=== PATIENT | female | born 1950 | race Caucasian/White ===

== ENCOUNTER 2020-01-03 12:14 | Emergency (ER) | payer MEDICARE, SELFPAY ==
--- NOTE | 2020-01-03 12:49 | ED.BACK ---
HPI - Back Pain/Injury General Chief Complaint: Back Pain/Injury Stated Complaint: Sciatica pain Time Seen by Provider: 01/03/20 12:51 Source: patient and RN notes reviewed Mode of arrival: ambulatory Limitations: no limitations History of Present Illness HPI Narrative: This is a 69 years old female presented office for evaluations of sciatica flares of her right lower back. Onset about a week ago. Symptoms began shortly a long car ride. She is moving back to [place] from [place]. She has similar symptoms about a year ago when she came to visit. Her [place] doctor gave her toradol and prednisone taper which has helped alot. She has tried [place] and Robaxin with ibuprofen with no minimal relief. Denies trauma/injury/fall. Denies urinary/bowel incontinent. She is a retired nurse. She is moving back to [place] permanently, she had a schedule appointment to establish care with a primary care on Friday 01/05 per patient. Related Data Home Medications Medication Instructions Recorded Confirmed amlodipine [Norvasc] 10 mg PO DAILY 01/03/20 01/03/20 aspirin 162 mg DAILY 01/03/20 01/03/20 atorvastatin 80 mg PO HS 01/03/20 01/03/20 bupropion HCl 100 mg PO BID 01/03/20 01/03/20 cetirizine [Zyrtec] 10 mg DAILY 01/03/20 01/03/20 Allergies Allergy/AdvReac Type Severity Reaction Status Date / Time cephalexin Allergy Intermediate Other Verified 01/03/20 12:31 hydroxyzine Allergy Intermediate Other Verified 01/03/20 12:30 Review of Systems Review of Systems: Narrative: CONSTITUTIONAL: Denies fever CARDIOVASCULAR: Denies chest pain, palpitation RESPIRATORY: Denies dyspnea, wheezing, cough GASTROINTESTINAL: Denies abdominal pain, nausea, vomiting GENITOURINARY: Denies urinary symptoms SKIN: Denies rash MUSCULOSKELETAL: Reports chronic back with subacute lower back pain that radiate on right side leg and sometimes to her left thigh. NEUROLOGIC: Denies lightheaded/dizziness. All other systems reviewed are negative, except as documented in HPI. [facility] Past Medical History Medical History (Updated 01/03/20 @ 14:04 by ARABELLA Reyes) Arthritis HTN (hypertension) Surgical History Surgical History (Updated 01/03/20 @ 12:51 by ARABELLA Reyes) Hx of appendectomy Hx of cholecystectomy Family History Family History (Updated 01/14/14 @ 07:13 by DOCTOR UNKNOWN) Sibling Family history of arthritis Family history of malignant neoplasm Father Patient's father is Other Cerebrovascular accident Hypertension Social History Social History Second hand tobacco smoke exposure: No Smoking end date: 05/20/73 Alcohol intake: current Gender identity (if verbalized by the patient): Female Comments At time of signature, I agree with nursing past medical, surgical, social and family history. There is no relevant family history pertinent to the presenting complaint. Exam Narrative: Exam Narrative: GENERAL: This is a well-nourished, well-developed patient, in no apparent distress. Overweight CARDIOVASCULAR: Regular rate and rhythm without murmurs, gallops, or rubs. RESPIRATORY: Clear to auscultation. Breath sounds equal bilaterally. No wheezes, rales, or rhonchi. GASTROINTESTINAL: Abdomen soft, non-tender, nondistended. Bowel sounds are active. No guarding. SKIN: warm, intact with no suspicious lesions or rash, good texture and turgor. NEURO: awake, alert, and oriented to person, place and time. There were no obvious focal neurologic abnormalities. Steady gait with walker EXTREMITIES: Normal range of motion. No edema. No calf tenderness. BACK: BACK: Tenderness in the paraspinous muscles in the lumbar area. No tenderness over the spinous processes of the lumbar vertebrae. LEGS: Normal strength including dorsi-flexion and plantar flexion of the feet. Positive right straight leg raising. Pedal pulses intact. [place] Coma Scale Eye Opening: Spontaneous 4 [place] Coma Scale Motor: Obeys Commands 6 Gla
[2020-01-03 12:50] VITALS: BP 144/77; PULSE 85; RESP 16; TEMP 36.7; O2SAT 97
[2020-01-03] MEDS: KETOROLAC (*BKC) 60 MG/2 ML VIAL IM (13:15)
== END 2020-01-03 13:40 | disposition home or self-care (01) ==
PROVIDERS: Emergency Provider Nurse Practitioner
DX: M54.31 Sciatica, right side (principal); M19.90 Unspecified osteoarthritis, unspecified site; I10 Essential (primary) hypertension
CPT/HCPCS: 96372; 99213; G0463; J1885

== ENCOUNTER 2020-01-26 10:11 | Outpatient (CLI) | payer MEDICARE, SELFPAY ==
[2020-01-26 10:51] LABS: Basophils Percent Auto 0.7 % (0.2-1.2); Eosinophils Absolute Auto 0.3 K/mm3 (0-0.3); Eosinophils Percent Auto 4.1 % (0-4.4); Hematocrit 42.5 % (37.0-47.0); Hemoglobin 14.1 g/dL (12.0-15.0); Immature Granulocyte Absolute 0.03 K/mm3 (0.00-0.031); Immature Granulocyte Percent A 0.5 % (0-0.5); Lymphocytes Absolute Auto 1.45 K/mm3 (0.9-3.2); Lymphocytes Percent Auto 23.8 % (18.3-44.2); Mean Corpuscular HGB Conc 33.2 g/dl (32-36); Mean Corpuscular Hemoglobin 30.6 pg (26-34); Mean Corpuscular Volume 92.2 fl (80-100); Mean Platelet Volume 10.2 fl (7.4-10.4); Monocytes Absolute Auto 0.4 K/mm3 (0.1-0.6); Monocytes Percent Auto 7.1 % (2.6-8.5); Neutrophils Absolute Auto 3.9 K/mm3 (1.3-6.7); Neutrophils Percent Auto 63.8 % (45.5-73.1); Platelet Count Result 217 k/mm3 (150-375); Red Blood Count 4.61 M/mm3 (4.2-5.4); Red Cell Distribution Width 14.5 % (11.5-14.5); White Blood Count 6.1 K/mm3 (4.5-10.0)
[2020-01-26 11:00] LABS: Hemoglobin A1C 5.7 % (<5.7)
[2020-01-26 11:07] LABS: Alanine Aminotransferase 27 U/L (4-35); Albumin Level 3.8 g/dL (3.5-5.1); Alkaline Phosphatase 77 U/L (38-126); Anion Gap 6 mmol/L (8-16); Aspartate Amino Transferase 22 U/L (14-36); Blood Urea Nitrogen 21 mg/dL (7-17); Calcium 8.8 mg/dL (8.4-10.2); Carbon Dioxide 24 mmol/L (22-30); Chloride 110 mmol/L (98-107); Cholesterol 137 mg/dL (0-200); Estimated Glomerular Filt Rate > 60; Glucose 114 mg/dL (65-105); HDL Direct 47 mg/dL; Potassium 3.7 mmol/L (3.4-5.0); Sodium 140 mmol/L (137-145); Triglycerides 90 mg/dL (<150)
[2020-01-26 11:17] LABS: Add Urine Microscopic? YES; Appearance Urine Turbid (Clear); Bacteria Urine 2+ /hpf; Bilirubin Urine Negative (Negative); Blood Urine 2+ (Negative); Color Urine Yellow (Yellow); Glucose Urine UA Negative (Negative); Ketones Urine Negative (Negative); Leukocyte Esterase Ur 3+ LEU/UL (Negative); Mucus Urine Few /lpf; Nitrate Urine Negative (Negative); Protein Urine 2+ mg/dL (Negative); RBC Urine 51-75 /hpf (0-2); Specific Grav Ur 1.017 (1.001-1.035); Squamous Epithelial Cell Urine Few /hpf (Few); Transitional Epi Cells Urine Rare /hpf (None Seen); Urobilinogen Urine Negative mg/dL (<2.0); WBC Clumps Urine Present /HPF; WBC Urine >75 /hpf
[2020-01-26 11:18] LABS: LDL Cholesterol Direct 70 mg/dL
--- NOTE | 2020-01-26 11:18 | ECG_ITS ---
Measurements Intervals [place] Rate: 76 P: 38 MI: 181 QRS: -5 QRSD: 94 T: 58 QT: 370 QTc: 417 Interpretive Statements SINUS RHYTHM BORDERLINE ST ABNORMALITY- HIGH LATERAL LEADS BASELINE ARTIFACT- I, II, III, AVR, AVL,A VF BORDERLINE ECG Electronically Signed On 01-26-2020 11:39:43 CDT by Yosvany Temple D.O.
[2020-01-26 11:29] LABS: Vitamin D 25 Hydroxy 31.8 ng/mL
[2020-01-26 11:47] LABS: Creatinine Urine 172.7 mg/dL
[2020-01-26 11:52] LABS: MALB Creatinine Ratio 73.9 mg/g (0-30); Microalbumin Urine Random 127.6 mg/L (0-16.7)
== END 2020-01-26 10:12 | disposition home or self-care (01) ==
PROVIDERS: PCP Internal Medicine; Visit Provider Internal Medicine
DX: E78.5 Hyperlipidemia, unspecified (principal); I10 Essential (primary) hypertension; F33.8 Other recurrent depressive disorders; R73.01 Impaired fasting glucose; Z79.899 Other long term (current) drug therapy; R39.15 Urgency of urination
CPT/HCPCS: 36415; 80053; 80061; 81001; 82043; 82306; 83036; 84443; 85025; 87077; 87086; 87088; 93005

== ENCOUNTER 2020-01-28 08:21 | Outpatient (CLI) | payer MEDICARE, SELFPAY ==
--- NOTE | ~2020-01-28 | MM_ITS ---
EXAMINATION: MM screening april BI w kallie HISTORY: Screening TECHNIQUE: Craniocaudal and mediolateral oblique 3-D tomosynthesis images were obtained and synthetic 2-D images were generated. CAD analysis was submitted and interpreted. COMPARISON: Comparison to multiple prior studies sequentially, with oldest reviewed study dated 08/17. BREAST PARENCHYMAL COMPOSITION: There are scattered areas of fibroglandular density. FINDINGS: There is no evidence of suspicious mass, calcification, or architectural distortion to sugg est malignancy in either breast. There has been no suspicious interval change. IMPRESSION: 1. No mammographic evidence of malignancy. 2. Recommend routine screening mammography in one year. BI-RADS Category 1: Negative Reviewed, dictated and finalized at location A.
== END 2020-01-28 08:22 | disposition home or self-care (01) ==
LOC: ANHIMG 08:24
PROVIDERS: PCP Internal Medicine; Visit Provider Internal Medicine
DX: Z12.31 Encounter for screening mammogram for malignant neoplasm of breast (principal)
CPT/HCPCS: 77063; 77067

== ENCOUNTER 2020-07-21 10:32 | Outpatient (CLI) | payer MEDICARE, SELFPAY | END 2020-07-21 10:33 | disposition home or self-care (01) | LOC: ANHCOVIDVC 10:32 | PROVIDERS: PCP Internal Medicine | DX: Z23 Encounter for immunization (principal) | CPT/HCPCS: 0001A; 91300 ==

== ENCOUNTER 2020-08-11 10:29 | Outpatient (CLI) | payer MEDICARE, SELFPAY | END 2020-08-11 10:30 | disposition home or self-care (01) | LOC: ANHCOVIDVC 10:29 | PROVIDERS: PCP Internal Medicine | DX: Z23 Encounter for immunization (principal) | CPT/HCPCS: 0002A; 91300 ==

== ENCOUNTER → 2020-09-01 13:49 | Outpatient (REF) | payer MEDICARE, SELFPAY | LOC: ANHLAB 13:49 | PROVIDERS: PCP Internal Medicine; Visit Provider Nurse Practitioner | DX: D49.2 Neoplasm of unspecified behavior of bone, soft tissue, and skin (principal) | CPT/HCPCS: 88305 ==

== ENCOUNTER → 2021-01-24 09:29 | Outpatient (CLI) | payer MEDICARE, SELFPAY ==
[2021-01-24 19:52] LABS: SARS-CoV-2 RNA PCR Positive
== END ==
PROVIDERS: PCP Internal Medicine; Visit Provider Internal Medicine
DX: U07.1 COVID-19 (principal)
CPT/HCPCS: C9803; U0003; U0005

== ENCOUNTER 2021-01-30 11:43 | Outpatient (RCR) | payer MEDICARE, SELFPAY ==
[2021-01-30] MEDS: diphenhydrAMINE HCl CAP 25 MG CAPSULE PO (11:59)
[2021-01-30] MEDS: ACETAMINOPHEN 325 MG TABLET 650 MG PO (11:59)
[2021-01-30] MEDS: FAMOTIDINE 20 MG TABLET PO (12:00)
[2021-01-30 12:12] VITALS: BP 124/65; PULSE 71; RESP 18; TEMP 36.7; O2SAT 94
[2021-01-30 13:36] VITALS: BP 138/59
== END 2021-01-30 16:30 | disposition home or self-care (01) ==
LOC: AMCINF 11:43
PROVIDERS: PCP Internal Medicine; Visit Provider Internal Medicine Hematology & Oncology
DX: Z23 Encounter for immunization (principal); U07.1 COVID-19; I10 Essential (primary) hypertension
CPT/HCPCS: A9270; J7050; M0243

== ENCOUNTER 2021-04-20 09:21 | Outpatient (CLI) | payer MEDICARE, SELFPAY ==
[2021-04-20 11:04] LABS: Basophils Percent Auto 0.6 % (0.2-1.2); Eosinophils Absolute Auto 0.3 K/mm3 (0-0.3); Hematocrit 42.1 % (37.0-47.0); Hemoglobin 13.8 g/dL (12.0-15.0); Immature Granulocyte Absolute 0.03 K/mm3 (0.00-0.031); Immature Granulocyte Percent A 0.4 % (0-0.5); Lymphocytes Absolute Auto 2.03 K/mm3 (0.9-3.2); Mean Corpuscular HGB Conc 32.8 g/dl (32-36); Mean Corpuscular Hemoglobin 30.7 pg (26-34); Mean Corpuscular Volume 93.8 fl (80-100); Monocytes Absolute Auto 0.5 K/mm3 (0.1-0.6); Monocytes Percent Auto 6.5 % (2.6-8.5); Neutrophils Absolute Auto 4.4 K/mm3 (1.3-6.7); Neutrophils Percent Auto 60.5 % (45.5-73.1); Platelet Count Result 237 k/mm3 (150-375); Red Blood Count 4.49 M/mm3 (4.2-5.4); Red Cell Distribution Width 14.6 % (11.5-14.5); White Blood Count 7.2 K/mm3 (4.5-10.0)
[2021-04-20 11:10] LABS: Hemoglobin A1C 5.5 % (<5.7)
[2021-04-20 11:22] LABS: Alanine Aminotransferase 28 U/L (4-35); Albumin Level 4.2 g/dL (3.5-5.1); Alkaline Phosphatase 89 U/L (38-126); Anion Gap 8 mmol/L (8-16); Aspartate Amino Transferase 32 U/L (14-36); Bilirubin,Total 0.8 mg/dL (0.2-1.3); Blood Urea Nitrogen 17 mg/dL (7-17); Calcium 9.1 mg/dL (8.4-10.2); Carbon Dioxide 27 mmol/L (22-30); Chloride 103 mmol/L (98-107); Cholesterol 127 mg/dL (0-200); Estimated Glomerular Filt Rate > 60; Glucose 99 mg/dL (65-110); HDL Direct 44 mg/dL; Potassium 3.7 mmol/L (3.4-5.0); Sodium 138 mmol/L (137-145); Triglycerides 82 mg/dL (<150)
[2021-04-20 11:26] LABS: Creatinine Urine 123.2 mg/dL
[2021-04-20 11:33] LABS: LDL Cholesterol Direct 58 mg/dL
[2021-04-20 11:45] LABS: MALB Creatinine Ratio 181.6 mg/g (0-30); Microalbumin Urine Random 223.7 mg/L (0-16.7)
[2021-04-20 16:42] LABS: Vitamin D 25 Hydroxy 45.6 ng/mL
== END 2021-04-20 09:22 | disposition home or self-care (01) ==
PROVIDERS: PCP Internal Medicine; Visit Provider Internal Medicine
DX: R73.01 Impaired fasting glucose (principal); F33.8 Other recurrent depressive disorders; Z51.81 Encounter for therapeutic drug level monitoring; Z79.899 Other long term (current) drug therapy; E78.5 Hyperlipidemia, unspecified; E55.9 Vitamin D deficiency, unspecified; I10 Essential (primary) hypertension; E66.01 Morbid (severe) obesity due to excess calories
CPT/HCPCS: 36415; 80053; 80061; 82043; 82306; 83036; 84443; 85025

== ENCOUNTER 2022-04-07 09:09 | Emergency (ER) | payer MEDICARE, SELFPAY ==
[2022-04-07 09:40] VITALS: BP 145/75; PULSE 81; RESP 14; TEMP 36.1; O2SAT 100
--- NOTE | 2022-04-07 10:01 | ED.GENADULT ---
HPI - General Adult General Chief complaint: Upper Respiratory Infection Stated complaint: cough Time Seen by Provider: 04/07/22 10:01 Source: patient Mode of arrival: ambulatory Limitations: no limitations History of Present Illness HPI narrative: 72-year-old female patient presents to the [facility] with complaints of an ongoing chronic cough for the past 2 weeks. Patient states her symptoms started about 2 weeks ago with fevers, chills, body aches, cough and just overall not feeling well. Patient states she has been vaccinated for COVID but she has not gotten a flu shot this season. Patient states that she did try to get into her primary care doctor however her primary doctor has moved to floor and she was assigned to a new doctor which cannot get her in until April. Patient states that symptoms have mostly resolved except for a cough that is ongoing feels like she can not cough fully. Related Data Home Medications Medication Instructions Recorded Confirmed cetirizine 10 mg tablet (Zyrtec) 10 mg DAILY 01/03/20 04/07/22 aspirin 81 mg tablet,delayed 81 mg PO DAILY 07/20/20 04/07/22 release multivitamin 1 tablet PO DAILY 01/30/21 04/07/22 Allergies Allergy/AdvReac Type Severity Reaction Status Date / Time cephalexin Allergy Intermediate Other Verified 04/07/22 09:37 hydroxyzine Allergy Intermediate Other Verified 04/07/22 09:37 Review of Systems Review of Systems: CONSTITUTIONAL: Positive fever, chills that has since resolved, denies sweats. EYES: Denies visual changes, redness, or discharge. ENT: Denies rhinorrhea, congestion, sore throat, or otalgia. Positive loss of voice CARDIOVASCULAR: Denies chest pain, palpitations, or edema. RESPIRATORY: Positive cough, denies dyspnea. GASTROINTESTINAL: Denies abdominal pain, nausea, vomiting, or diarrhea. GENITOURINARY: Denies dysuria or hematuria. SKIN: Denies rash or itching. MUSCULOSKELETAL: Denies back pain, joint pain, positive myalgia. NEUROLOGIC: Positive headache, denies numbness, or weakness. PSYCHIATRIC: Denies anxiety or depression. [facility] Past Medical History Medical History Arthritis HTN (hypertension) Surgical History Surgical History History of tonsillectomy Hx of appendectomy Hx of cholecystectomy Family History Family History Sibling Family history of arthritis Family history of malignant neoplasm Father Patient's father is Other Cerebrovascular accident Hypertension Social History Social History Smoking packs per day: 2 Smoking cigarettes per day: 40.0 Years smoked: 5 Smoking pack-years: 10.00 Smoking status: Former smoker Second hand tobacco smoke exposure: No Smoking end date: 05/20/81 Alcohol intake: current Gender identity (if verbalized by the patient): Female Comments At the time of my signature I agree with nursing past medical history, surgical, social, and family history. There is no relevant family history pertinent to the presenting complaint. Exam Narrative: GENERAL: ill-appearing, well-nourished, and in no acute distress. HEAD: Normocephalic, atraumatic. EYES: PERRLA and EOMI. ENT: Nares with erythema and edema noted bilaterally, no rhinorrhea or epistaxis. Mucous membranes moist. Posterior pharynx with no erythema, tonsillar edema, exudates or lesions present. NECK: Supple. No lymphadenopathy CHEST: Patient's right lower lobe does have some wheezing present along with tightness to bilateral lower lobes. Bilateral upper lobes are clear. No respiratory distress. Patient able to talk in clear complete sentences HEART: Regular rate and rhythm. No murmur heard. Normal peripheral pulses. ABDOMEN: Soft, nontender, nondistended, normal active bowel sounds. EXTRE
[2022-04-07] MEDS: ALBUTEROL SULFATE NEB 2.5 MG/3 ML INH INHALATION (10:33)
[2022-04-07] MEDS: IPRATROPIUM BR 0.02% INH SOLN 0.5 MG/2.5 ML VIAL INHALATION (10:33)
== END 2022-04-07 11:25 | disposition home or self-care (01) ==
PROVIDERS: Emergency Provider Nurse Practitioner Family; PCP Internal Medicine
DX: J20.8 Acute bronchitis due to other specified organisms (principal); Z87.891 Personal history of nicotine dependence; I10 Essential (primary) hypertension; M19.90 Unspecified osteoarthritis, unspecified site; Z79.82 Long term (current) use of aspirin
CPT/HCPCS: 94640; 99213; G0463

== ENCOUNTER 2022-05-09 10:47 | Outpatient (CLI) | payer MEDICARE, SELFPAY ==
[2022-05-09 11:53] LABS: Alanine Aminotransferase 30 U/L (6-35); Albumin Level 4.4 g/dL (3.5-5.1); Alkaline Phosphatase 81 U/L (38-126); Anion Gap 9 mmol/L (8-16); Aspartate Amino Transferase 29 U/L (14-36); Bilirubin,Total 0.9 mg/dL (0.2-1.3); Blood Urea Nitrogen 26 mg/dL (7-17); Calcium 9.2 mg/dL (8.4-10.2); Carbon Dioxide 28 mmol/L (22-30); Chloride 105 mmol/L (98-107); Cholesterol 143 mg/dL (0-200); Estimated Glomerular Filt Rate > 60; Glucose 94 mg/dL (65-110); HDL Direct 58 mg/dL; Sodium 142 mmol/L (137-145); Triglycerides 78 mg/dL (<150)
[2022-05-09 12:05] LABS: LDL Cholesterol Direct 56 mg/dL
[2022-05-09 12:12] LABS: Vitamin D 25 Hydroxy 43.9 ng/mL
== END 2022-05-09 10:48 | disposition home or self-care (01) ==
PROVIDERS: PCP Internal Medicine; Visit Provider Internal Medicine
DX: Z51.81 Encounter for therapeutic drug level monitoring (principal); Z79.899 Other long term (current) drug therapy; R73.01 Impaired fasting glucose; I10 Essential (primary) hypertension; E78.5 Hyperlipidemia, unspecified; E55.9 Vitamin D deficiency, unspecified
CPT/HCPCS: 36415; 80053; 80061; 82306; 83036

== ENCOUNTER 2022-11-17 10:31 | Outpatient (CLI) | payer MEDICARE, SELFPAY ==
[2022-11-17 12:42] LABS: Alanine Aminotransferase 29 U/L (6-35); Albumin Level 4.3 g/dL (3.5-5.1); Alkaline Phosphatase 66 U/L (38-126); Anion Gap 7 mmol/L (8-16); Aspartate Amino Transferase 29 U/L (14-36); Bilirubin,Total 0.8 mg/dL (0.2-1.3); Blood Urea Nitrogen 24 mg/dL (7-17); Calcium 9.3 mg/dL (8.4-10.2); Carbon Dioxide 28 mmol/L (22-30); Chloride 107 mmol/L (98-107); Cholesterol 124 mg/dL (0-200); Estimated Glomerular Filt Rate > 60; Glucose 92 mg/dL (65-110); HDL Direct 45 mg/dL; Potassium 3.9 mmol/L (3.4-5.0); Sodium 142 mmol/L (137-145); Triglycerides 71 mg/dL (<150)
[2022-11-17 12:56] LABS: LDL Cholesterol Direct 57 mg/dL
[2022-11-17 13:01] LABS: Vitamin D 25 Hydroxy 47.4 ng/mL
[2022-11-17 13:21] LABS: Hemoglobin A1C 5.7 % (<5.7)
== END 2022-11-17 10:32 | disposition home or self-care (01) ==
LOC: ANHLAB 10:34
PROVIDERS: PCP Family Medicine; Visit Provider Family Medicine
DX: I10 Essential (primary) hypertension (principal); Z79.899 Other long term (current) drug therapy; E55.9 Vitamin D deficiency, unspecified; R73.02 Impaired glucose tolerance (oral); E78.5 Hyperlipidemia, unspecified
CPT/HCPCS: 36415; 80053; 80061; 82306; 83036

== ENCOUNTER 2023-01-02 12:45 | Outpatient (CLI) | payer MEDICARE, SELFPAY ==
--- NOTE | ~2023-01-02 | DEXA_ITS ---
Bone Density Report Name: ODETTE REYNOLDS Age: 72 Sex: Female Ethnicity: White Date of : 1950 Indication: postmenopausal; screening for osteoporosis; height loss; Referring Provider: LESIA LANGE Study: Bone densitometry was performed. Exam Date: January 02, 2023 Accession number: [id number] Bone Density: Region BMD T-score Z-score Classification AP Spine(L1-L4) 1.218 1.6 3.9 Normal Femoral Neck (Left) 1.024 1.6 3.6 Normal Total Hip (Left) 1.152 1.7 3.5 Normal Femoral Neck (Right) 0.738 -1.0 1.1 Normal Total Hip (Right) 1.116 1.4 3.2 Normal Total Hip Mean 1.134 1.6 3.4 Normal World Health Organization criteria for BMD impression classify patients as: Normal (T-score at or above -1.0), Osteopenia (T-score between -1.0 and -2.5), or Osteoporosis (T-score at or below -2.5). 10-year Fracture Risk: FRAX not reported because: All T-scores for Spine Total, Hip Total, Femoral Neck at or above -1.0 Clinical Information Provided by Patient: Has used the following medications: Vitamin D Patient maximum height was 67 Menopause Age: 46 Drinks caffeinated beverages Onset of menses at age 12 Number of children 3 Impression: The patient has normal bone mass. Discussion: BONE DENSITY IS ABOVE THE MINIMUM DESIRABLE LEVEL AT ALL SKELETAL SITES TESTED. This patient?s bone mineral density is above the minimum desirable level (T-score -1.0 or better) at all sites measured. The patient should follow a healthful lifestyle (good nutrition with adequate calcium and vitamin D, and appropriate weight-bearing exercise). Follow-Up: Consider repeating this study in 5 years or sooner if there is some new clinical indication. Reported by: JAKY on 01/02/2023 1:19:00 PM. Reviewed, dictated and finalized at location A. [facility]
== END 2023-01-02 12:46 | disposition home or self-care (01) ==
LOC: ANHIMG 12:47
PROVIDERS: PCP Family Medicine; Visit Provider Family Medicine
DX: Z78.0 Asymptomatic menopausal state (principal)
CPT/HCPCS: 77080

== ENCOUNTER 2023-02-23 11:01 | Outpatient (CLI) | payer MEDICARE, SELFPAY ==
[2023-02-23 11:27] LABS: Basophils Absolute Auto 0.1 K/mm3 (0.0-0.1); Basophils Percent Auto 0.7 % (0.2-1.2); Eosinophils Absolute Auto 0.2 K/mm3 (0-0.3); Hematocrit 42.7 % (37.0-47.0); Hemoglobin 14.2 g/dL (12.0-15.0); Immature Granulocyte Absolute 0.05 K/mm3 (0.00-0.031); Immature Granulocyte Percent A 0.7 % (0-0.5); Lymphocytes Absolute Auto 2.13 K/mm3 (0.9-3.2); Lymphocytes Percent Auto 30.6 % (18.3-44.2); Mean Corpuscular HGB Conc 33.3 g/dl (32-36); Mean Corpuscular Hemoglobin 31.4 pg (26-34); Mean Corpuscular Volume 94.5 fl (80-100); Mean Platelet Volume 9.8 fl (7.4-10.4); Monocytes Absolute Auto 0.5 K/mm3 (0.1-0.6); Monocytes Percent Auto 6.6 % (2.6-8.5); Neutrophils Absolute Auto 4.1 K/mm3 (1.3-6.7); Neutrophils Percent Auto 58.4 % (45.5-73.1); Platelet Count Result 252 k/mm3 (150-375); Red Blood Count 4.52 M/mm3 (4.2-5.4); Red Cell Distribution Width 13.8 % (11.5-14.5)
[2023-02-23 11:38] LABS: Alanine Aminotransferase 28 U/L (6-35); Albumin Level 4.3 g/dL (3.5-5.1); Alkaline Phosphatase 68 U/L (38-126); Anion Gap 7 mmol/L (8-16); Aspartate Amino Transferase 28 U/L (14-36); Bilirubin,Total 0.8 mg/dL (0.2-1.3); Blood Urea Nitrogen 22 mg/dL (7-17); Calcium 9.4 mg/dL (8.4-10.2); Carbon Dioxide 28 mmol/L (22-30); Chloride 105 mmol/L (98-107); Cholesterol 125 mg/dL (0-200); Estimated Glomerular Filt Rate > 60; Glucose 103 mg/dL (65-110); HDL Direct 49 mg/dL; Potassium 4.2 mmol/L (3.4-5.0); Sodium 140 mmol/L (137-145); Triglycerides 62 mg/dL (<150)
[2023-02-23 11:49] LABS: LDL Cholesterol Direct 61 mg/dL
[2023-02-23 12:15] LABS: Vitamin D 25 Hydroxy 63.6 ng/mL
[2023-02-23 12:20] LABS: Hemoglobin A1C 5.6 % (<5.7)
== END 2023-02-23 11:02 | disposition home or self-care (01) ==
PROVIDERS: PCP Family Medicine; Visit Provider Family Medicine
DX: R73.02 Impaired glucose tolerance (oral) (principal); R73.01 Impaired fasting glucose; F32.A Depression, unspecified; E66.01 Morbid (severe) obesity due to excess calories; E55.9 Vitamin D deficiency, unspecified; I10 Essential (primary) hypertension
CPT/HCPCS: 36415; 80053; 80061; 82306; 83036; 85025

== ENCOUNTER 2023-09-26 07:50 | Outpatient (CLI) | payer MEDICARE, SELFPAY ==
[2023-09-26 08:33] LABS: Hematocrit 44.1 % (37.0-47.0); Hemoglobin 14.1 g/dL (12.0-15.0); Mean Corpuscular Hemoglobin 30.5 pg (26-34); Mean Corpuscular Volume 95.2 fl (80-100); Platelet Count Result 228 k/mm3 (150-375); Red Blood Count 4.63 M/mm3 (4.2-5.4); Red Cell Distribution Width 14.5 % (11.5-14.5); White Blood Count 6.1 K/mm3 (4.5-10.0)
[2023-09-26 08:42] LABS: Alanine Aminotransferase 23 U/L (6-35); Albumin Level 4.5 g/dL (3.5-5.1); Alkaline Phosphatase 77 U/L (38-126); Anion Gap 6 mmol/L (4-12); Aspartate Amino Transferase 25 U/L (14-36); Bilirubin,Total 0.8 mg/dL (0.2-1.3); Blood Urea Nitrogen 30 mg/dL (7-17); Calcium 10.3 mg/dL (8.4-10.2); Carbon Dioxide 29 mmol/L (22-30); Chloride 106 mmol/L (98-107); Estimated Glomerular Filt Rate > 60; Glucose 104 mg/dL (65-110); Sodium 141 mmol/L (137-145)
[2023-09-26 09:45] LABS: Hemoglobin A1C 5.8 % (<5.7)
== END 2023-09-26 07:51 | disposition home or self-care (01) ==
PROVIDERS: PCP Family Medicine; Visit Provider Family Medicine
DX: E55.9 Vitamin D deficiency, unspecified (principal); E66.01 Morbid (severe) obesity due to excess calories; E66.9 Obesity, unspecified; F32.A Depression, unspecified; I10 Essential (primary) hypertension; Z79.899 Other long term (current) drug therapy
CPT/HCPCS: 36415; 80053; 83036; 85027

== ENCOUNTER 2023-09-28 14:16 | Emergency (ER) | payer MEDICARE, SELFPAY ==
--- NOTE | 2023-09-28 14:20 | ED.FEMALEGU ---
HPI - Female Genitourinary General Chief complaint: Urogenital-Female Stated complaint: urinary issue Time Seen by Provider: 09/28/23 14:20 Source: patient Mode of arrival: ambulatory Limitations: no limitations History of Present Illness HPI Narrative: Patient is a 73-year-old female that presents with 1 day of frequency and urgency. Wears pads daily. Denies any low pelvic pain, back pain, fever, nausea, vomiting, diarrhea. Has taken Tylenol and D-mannose. MD elicited complaint: dysuria Related Data Home Medications Medication Instructions Recorded Confirmed aspirin 81 mg tablet,delayed 81 mg PO DAILY 07/20/20 09/28/23 release multivitamin 1 tablet PO DAILY 01/30/21 09/28/23 cetirizine 10 mg tablet (Zyrtec) 10 mg PO DAILY 11/15/22 09/28/23 cholecalciferol (vitamin D3) 50 50 mcg PO DAILY 11/15/22 09/28/23 mcg (2,000 unit) capsule nystatin-triamcinolone 100,000 1 applic topical BID 11/15/22 09/28/23 unit/g-0.1 % topical cream Allergies Allergy/AdvReac Type Severity Reaction Status Date / Time cephalexin Allergy Intermediate Other Verified 09/28/23 14:36 hydroxyzine Allergy Intermediate Other Verified 09/28/23 14:36 Review of Systems Review of Systems: All systems reviewed & are unremarkable except as noted in HPI and below Constitutional: Constitutional: Denies chills, Denies fever(s), Denies headache(s), Denies malaise and Denies weakness Eyes: Eyes: Denies change in vision, Denies eye discharge and Denies irritation ENT: Denies otalgia, Denies headache(s), Denies nasal congestion, Denies nasal discharge, Denies sinus pain and Denies sore throat Cardiovascular: Cardiovascular: Denies chest pain, Denies edema, Denies palpitations and Denies dyspnea Respiratory: Respiratory: Denies cough and Denies dyspnea Gastrointestinal: Gastrointestinal: Denies abdominal pain, Denies diarrhea, Denies nausea and Denies vomiting Genitourinary: Genitourinary: Denies hematuria, Reports nocturia, Reports dysuria, Denies flank pain and Reports urinary urgency Musculoskeletal: Musculoskeletal: Denies back pain and Denies numbness Integumentary/Breasts: Skin/Breast: Denies pruritus and Denies rash Neurologic: Denies headache(s), Denies numbness and Denies weakness Psychiatric: Psychiatric: Reports no additional psychiatric complaints Endocrine: Endocrine: Denies palpitations PMFSH Past Medical History Medical History Arthritis HTN (hypertension) Surgical History Surgical History History of tonsillectomy Hx of appendectomy Hx of cholecystectomy Family History Family History Sibling Family history of arthritis Family history of malignant neoplasm Father Patient's father is Other Cerebrovascular accident Hypertension Social History Social History Smoking packs per day: 2 Smoking cigarettes per day: 40.0 Years smoked: 5 Smoking pack-years: 10.00 Smoking status: Former smoker Second hand tobacco smoke exposure: No Smoking end date: 05/20/81 Alcohol intake: current Alcohol use details: rarely Substance use: never Substance use type: does not use Lack of Transportation: No Lack of Food: Never True Current Housing: I Have Housing Concerned About Future Housing: No Difficulty Paying Gas/Electric Bills: No Difficulty Paying for Meds: No Currently Unemployed: No Education: Associate Degree Difficulty w/ Childcare or Family Care: No Gender identity (if verbalized by the patient): Female Comments At time of signature, agree with nursing past medical, surgical, social and family history. There is no relevant family history pertinent to the presenting complaint. Exam Const: General: cooperative, healthy appearing, comfor
[2023-09-28 14:33] VITALS: BP 153/75; PULSE 80; RESP 20; TEMP 37.5; O2SAT 97
== END 2023-09-28 15:05 | disposition home or self-care (01) ==
PROVIDERS: Emergency Provider Nurse Practitioner Family; PCP Family Medicine
DX: N30.01 Acute cystitis with hematuria (principal); I10 Essential (primary) hypertension; Z87.891 Personal history of nicotine dependence
CPT/HCPCS: 81003; 87077; 87086; 87088; 87186; 99213; G0463

== ENCOUNTER 2023-10-08 12:13 | Outpatient (CLI) | payer MEDICARE, SELFPAY ==
[2023-10-08 13:22] LABS: Appearance Urine Turbid (Clear); Bacteria Urine 2+ /hpf; Bilirubin Urine Negative (Negative); Blood Urine 2+ (Negative); Color Urine Yellow (Yellow); Glucose Urine UA Negative (Negative); Ketones Urine Negative (Negative); Leukocyte Esterase Ur 3+ LEU/UL (Negative); Nitrate Urine Negative (Negative); Non Pathogenic Casts 0-2; Protein Urine 1+ mg/dL (Negative); Squamous Epithelial Cell Urine None Seen /hpf (Few); Urobilinogen Urine 0.2 mg/dL (<2.0); WBC Urine >100 /hpf (0-3); pH Urine 6.5 (5.0-9.0)
[2023-10-08 13:38] LABS: Add Urine Microscopic? YES
== END 2023-10-08 12:14 | disposition home or self-care (01) ==
PROVIDERS: PCP Family Medicine; Visit Provider Family Medicine
DX: N30.90 Cystitis, unspecified without hematuria (principal); Z79.899 Other long term (current) drug therapy
CPT/HCPCS: 81001; 87077; 87086; 87088; 87186

== ENCOUNTER 2024-03-30 08:22 | Outpatient (CLI) | payer MEDICARE, SELFPAY ==
[2024-03-30 08:57] LABS: Hematocrit 42.7 % (37.0-47.0); Mean Corpuscular HGB Conc 32.8 g/dl (32-36); Mean Corpuscular Volume 94.7 fl (80-100); Mean Platelet Volume 9.8 fl (7.4-10.4); Platelet Count Result 234 k/mm3 (150-375); Red Blood Count 4.51 M/mm3 (4.2-5.4); Red Cell Distribution Width 14.6 % (11.5-14.5); White Blood Count 7.3 K/mm3 (4.5-10.0)
[2024-03-30 09:16] LABS: Alanine Aminotransferase 20 U/L (6-35); Albumin Level 4.2 g/dL (3.5-5.1); Alkaline Phosphatase 78 U/L (38-126); Anion Gap 9 mmol/L (4-12); Aspartate Amino Transferase 24 U/L (14-36); Bilirubin,Total 0.6 mg/dL (0.2-1.3); Blood Urea Nitrogen 34 mg/dL (7-17); Calcium 9.9 mg/dL (8.4-10.2); Carbon Dioxide 29 mmol/L (22-30); Chloride 103 mmol/L (98-107); Cholesterol 117 mg/dL (0-200); Estimated Glomerular Filt Rate > 60; Glucose 88 mg/dL (65-110); HDL Direct 53 mg/dL; Potassium 4.4 mmol/L (3.4-5.0); Sodium 141 mmol/L (137-145); Triglycerides 49 mg/dL (<150)
[2024-03-30 09:27] LABS: LDL Cholesterol Direct 47 mg/dL
[2024-03-30 10:03] LABS: Hemoglobin A1C 5.9 % (<5.7)
[2024-03-30 13:50] LABS: Vitamin D 25 Hydroxy 55.2 ng/mL
== END 2024-03-30 08:23 | disposition home or self-care (01) ==
PROVIDERS: PCP Family Medicine; Visit Provider Family Medicine
DX: E55.9 Vitamin D deficiency, unspecified (principal); E66.01 Morbid (severe) obesity due to excess calories; F32.A Depression, unspecified; I10 Essential (primary) hypertension; R73.01 Impaired fasting glucose; Z00.00 Encounter for general adult medical examination without abnormal findings; Z79.899 Other long term (current) drug therapy
CPT/HCPCS: 36415; 80053; 80061; 82306; 82607; 83036; 85027

== ENCOUNTER 2024-10-28 09:11 | Outpatient (CLI) | payer MEDICARE, SELFPAY ==
[2024-10-28 09:30] LABS: Hematocrit 45.2 % (37.0-47.0); Hemoglobin 14.7 g/dL (12.0-15.0); Mean Corpuscular HGB Conc 32.5 g/dl (32-36); Mean Corpuscular Hemoglobin 30.2 pg (26-34); Mean Corpuscular Volume 92.8 fl (80-100); Platelet Count Result 216 k/mm3 (150-375); Red Blood Count 4.87 M/mm3 (4.2-5.4); Red Cell Distribution Width 14.6 % (11.5-14.5); White Blood Count 7.4 K/mm3 (4.5-10.0)
[2024-10-28 09:44] LABS: Alanine Aminotransferase 27 U/L (6-35); Albumin Level 4.2 g/dL (3.5-5.1); Alkaline Phosphatase 68 U/L (38-126); Anion Gap 8 mmol/L (4-12); Aspartate Amino Transferase 27 U/L (14-36); Bilirubin,Total 0.6 mg/dL (0.2-1.3); Blood Urea Nitrogen 32 mg/dL (7-17); Calcium 9.8 mg/dL (8.4-10.2); Carbon Dioxide 25 mmol/L (22-30); Chloride 108 mmol/L (98-107); Estimated Glomerular Filt Rate > 60; Glucose 109 mg/dL (65-110); Potassium 4.3 mmol/L (3.4-5.0); Sodium 141 mmol/L (137-145); Total Protein 7.6 g/dL (6.3-8.2)
--- OUTSIDE RECORDS SUMMARY | 2024-10-28 09:52 | XMS_ITS | Clinical Summary ---
Author Organization [facility] [employer] Address [address] [place] [address] Care Team Providers Care Trust Evaluation Supervisor Name Role Phone Zeke Mckeon MD Primary Care Provider [phone] Source Comments [facility],non-owned Affiliates and Associated Physician Practices is amultiple site organization consisting of ambulatory clinics and hospital sitesin [place], [place], [place] and [place]. This disclosure is being madepursuant to the Care Everywhere program and may not contain all information available regarding this patient. Last updated 18.[facility] [employer] Allergies Active Allergy Reactions Criticality Noted Date Comments Cephalexin Nausea and/or Vomiting Low 11/01/2015 Hydroxyzine Pamoate Other 11/19/2017 hallucinations Medications * Be aware that medications may not be up to date on this document. Alwaysverify current medications with the patient. aspirin (ASPIRIN) 81 MG tablet Take 81 mg by mouth once daily Active atorvastatin (LIPITOR) 80 MG tablet Take 1 tablet by mouth once daily 12/17/2016 Active cetirizine (ZYRTEC) 10 MG tablet Take 10 mg by mouth once daily as needed Active ibuprofen (MOTRIN) 200 MG tablet Take 200 mg by mouth as needed Active multivitamins (ONE A DAY) capsule Take 1 capsule by mouth once daily Active buPROPion SR 12hr (WELLBUTRIN SR) 200 MG tablet Take 200 mg by mouth 2 times daily Active Social History Tobacco Use Types Packs/Day Years Used Date Smoking Tobacco: Former Cigarettes 1 4 0 05/20/1971 - 05/20/1975 Smokeless Tobacco: Never Comments Unknown Sex and Gender Information Value Date Recorded Sex Assigned at Not on file 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 Gender Identity Not on file Sexual Orientation Not on file Last Filed Vital Signs Vital Sign Reading Time Taken Comments Blood Pressure - - Pulse 69 11/01/2015 10:20 AM CDT Temperature 36.6 C (97.8 F) 11/01/2015 10:20 AM CDT Respiratory Rate 14 11/01/2015 10:20 AM CDT Oxygen Saturation - - Inhaled Oxygen Concentration - - Weight 129.3 kg (285 lb) 11/19/2017 10:17 AM CDT reported Height 168.9 cm (5' 6.5) 11/19/2017 10:17 AM CD T reported Body Mass Index 45.31 11/19/2017 10:17 AM CDT Plan of Treatment Health Maintenance Due Date Last Done Comments BONE DENSITY TESTING 1950 HEPATITIS C SCREENING 03/07/1966 DTAP/TDAP/TD VACCINES (1 - Tdap) 1967 PNEUMOCOCCAL VACCINE 50+ (1 of 1 - PCV) 1998 ZOSTER VACCINE (1 of 2) 1998 SCREENING FOR DIABETES 11/19/2017 Respiratory Syncytial Virus (RSV) Vaccine Pt: or over 60 yrs (1 - 1-dose 75+ series) 2023 COVID-19 VACCINE ( - 2023-2 5 season) 2024 DEPRESSION SCREENING 05/20/2024 INFLUENZA VACCINE (Season Ended) 2025 HEPATITIS B VACCINE Aged Out No longe r eligible based on patient's age to complete this topic HIB VACCINE Aged Out No longer eligi ble based on patient's age to complete this topic HPV VACCINE Aged Out No longer eligi ble based on patient's age to complete this topic MENINGOCOCCAL (Group B) VACC INE SHARED DECISION-MAKING Aged Out No longer eligibl e based on patient's age to complete this topic MENINGOCOCCAL GROUPS A/C/Y/W VACCINE Aged Out No longer eligible b ased on patient's age to complete this topic Insurance MEDICARE [facility] [address] Care Teams Trust Evaluation Supervisor Relationship Specialty Start Date End Date Zeke Mckeon MD [address] [place] [address] PCP - General 01/27/20
--- OUTSIDE RECORDS SUMMARY | 2024-10-28 09:52 | XMS_ITS | Continuity of Care Document ---
Author Organization [facility] Address [address] [place] [address] Phone Care Team Providers Care Bottle Filler Name Role Phone Chavira OD, Bere[place] Unavailable Unavailable Procedures Procedure Date Office/outpatient Visit, Est Office/outpatient Visit, Est Office/outpatient Visit, Est Advance Directives Directive Yes / No Effective Date File Name No Information Encounters Encounter Description Practice Location Reason(s) For Visit Diagnoses Date Provider Providers Copied on Encounter [place] [facility] [place] [address] [place] [address] [address], [place], [place], [id number], [place] tel:[phone] [facility] No Information Mar-0 8-200 8 Chavira OD Bereket. [address] , [address], [place], [address], [place]. tel:[phone] [place] [facility] [place] [address] [place] [address] [address], [place], [place], [id number], [place] tel:[phone] [facility] No Information Jul-2 6-200 7 Yani Guillaume. [address], [address], [place], [place], [id number], [place]. tel:[phone] [place] [facility] [place] [address], [place], [place], [id number], [place] tel:[phone] [facility] No Information Feb-2 6-200 7 Wankum Markell. [address], [address], [place], [place], [id number], [place]. tel:[phone] Family History Family Member Type Diagnosis Age At Onset No Information Payers Payer name Insurance type Covered republican ID Authorsamara thakur(s) [facility] CI [id number] Social History Type Description Quantity Date Captured Comments Sex Female Smoking Status No Information Chief Complaint And Reason For Visit No Information Reason For Referral Reason For Referral No Information History Of Present Illness Encounter Date Complaint History Of Prese nt Illness No Information Functional Status Date Functional Assessmen t No Information Instructions Date Instruction Additional Infor mation No Information Assessments Type Assessment Date No Information Patient Care Teams Name Effective Dates (start - stop) Status Members No Information
[2024-10-28 10:08] LABS: Hemoglobin A1C 5.7 % (<5.7)
== END 2024-10-28 09:12 | disposition home or self-care (01) ==
PROVIDERS: PCP Family Medicine; Visit Provider Family Medicine
DX: E66.01 Morbid (severe) obesity due to excess calories (principal); I10 Essential (primary) hypertension; R73.01 Impaired fasting glucose; E66.9 Obesity, unspecified; Z79.899 Other long term (current) drug therapy
CPT/HCPCS: 36415; 80053; 83036; 85027

== ENCOUNTER 2024-11-30 16:05 | Outpatient (CLI) | payer MEDICARE, SELFPAY ==
--- NOTE | ~2024-11-30 | XR_ITS ---
EXAMINATION: XR chest 2V Exam Date/Time: 11/30/2024 16:20 CDT HISTORY: R53.83 - Other fatigue Comparison: 08/17/2011. RESULT: Lines, tubes, and devices: None. Lungs and pleura: Small focus of reticulonodular opacities in the peripheral right lower lung. Cardiomediastinal silhouette: Stable. Other: No acute osseous or upper abdominal finding. IMPRESSION: Small focus of opacities in the right lower lung may represent atypical infection in the appropriate clinical context. Consider CT of the chest for further evaluation. Reviewed, dictated and finalized at location K. IMPRESSION: Small focus of opacities in the right lower lung may represent atypical infecti on in the appropriate clinical context. Consider CT of the chest for further ev aluation.
--- OUTSIDE RECORDS SUMMARY | 2024-11-30 16:08 | XMS_ITS | Clinical Summary ---
Author Organization [facility] [employer] Address [address] [place] [address] Care Team Providers Care Maintenance Worker Swimming Pool Name Role Phone Zeke Mckeon MD Primary Care Provider [phone] Source Comments [facility],non-owned Affiliates and Associated Physician Practices is amultiple site organization consisting of ambulatory clinics and hospital sitesin [place], [place], [place] and [place]. This disclosure is being madepursuant to the Care Everywhere program and may not contain all information available regarding this patient. 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
--- OUTSIDE RECORDS SUMMARY | 2024-11-30 16:08 | XMS_ITS | Patient Health Record ---
Author Organization [facility] Address [address] [place] [address] Care Team Providers Care Target Worker Name Role Phone Porter Abdalla Primary Care Provider Tayo Reese Unavailable Unavailable Miley Abdalla Unavailable Unavailable Allergies Allergen (clinical drug ingredient) Drug/Non Drug Allergy documented on EMR Reaction Allergy Type Onset Date Status Keflex Unknown Drug Allergy Active hydroxyzine Vistaril Unknown Drug Allergy Activ e Reason For Referral No Information Medications Medication SIG (Take, Route, Frequency, Duration) Notes Start Date End Date Status Aspirin 1 tab(s) orally QDaily *Pick strength-form from Med[facility] for eRX* Active ZyrTEC 10 mg 1 tab(s) orally once a day *Pick strength-form from Med[facility] for eRX* Active Bupropion 100 mg 1 tab(s) orally 2 times a day for 30 day(s) *Reorder from [facility] for eRx and Interaction Alerts* Active atorvastatin 80 mg 1 tab(s) orally once a day for 30 day(s) *Reorder from [facility] for eRx and Interaction Alerts* Active Melatonin 10 mg 1 cap(s) orally once a day (at bedtime) Active Immunizations Vaccine Route Administration Date Status Comme nts Pneumococcal Unknown 08/19/2018 Administered given by P CP Immunization Given by from source eCW:: Problems Problem Type SNOMED Code ICD Code Onset Dates Problem Status W/U Status Risk Notes Problem 541476246 Morbid (severe) obesity due to excess calories (E66.01) Active confirmed Problem 365481186 Mixed hyperlipidemia (E78.2) Active confirmed Problem 330976475 Body mass index (BMI) of 50-59.9 in adult (Z68.43) Active confirmed Problem 743465122 Family history o f colon cancer (Z80.0) Active confirmed Problem 644336611 Special screenin g for malignant neoplasms, colon (Z12.11) Active confirmed Problem 68932103 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 Problem 668925965 Pre-operative examination (Z01.818) Active confirmed Problem 689934434 Gait instability (R26.81) Active confirmed Problem 544348656 General medical examination (Z00.00) Active confirmed Problem 078628405 Seasonal affecti ve disorder (F33.8) Active confirmed Plan Of Treatment No Information Medical (General) History Medical History History ICD Code FAMILY HISTORY OF COLON CANCER (FATHER) MORBID OBESITY (BMI> 50) HYPERTENSION H/O SHINGLES OBESITY Spasmodic dysphonia Mood Disorder GALLBLADDER/GALLSTONES-S/P CHOLECYSTECTO MY Chickenpox, [place] measles, mumps Gonorrhea Surgical History Surgery Date(Month/Year) S/P TONSILLECTOMY 1961 S/P APPENDECTOMY S/P OPEN CHOLECYSTECTOMY 1973 S/P EXPLORATORY SURGERY-partial removal of right [place] S/P EPISIOTOMY LEIOMYOMA , d&c 2007 H/O OVARIAN CYSTECTOMY 1981 S/P CATARACT SURGERY S/P HYSTEROSCOPY , D&C 05/2012 Hospitalization History Reason Date(Month/Year) COLONOSCOPY 02/2014
--- OUTSIDE RECORDS SUMMARY | 2024-11-30 16:08 | XMS_ITS | Continuity of Care Document ---
Author Organization [facility] Address [address] [place] [address] Phone Care Team Providers Care Wood Veneer Taper Name Role Phone Chavira OD, [place] Unavailable Unavailable Procedures Procedure Date Office/outpatient Visit, Est Office/outpatient Visit, Est Office/outpatient Visit, Est Advance Directives Directive Yes / No Effective Date File Name No Information Encounters Encounter Description Practice Location Reason(s) For Visit Diagnoses Date Provider Providers Copied on Encounter Office/outpat ient Visit, [facility], [address] [place] [address] [address], [place], [place], [id number], [place] tel:[phone] [facility] No Information Mar-0 8-200 8 Chavira OD [place]. [address] , [address], [place], [address], [place]. tel:[phone] Office/outpat ient Visit, [facility], [address] [place] [address] [address], [place], [place], [id number], [place] tel:[phone] [facility] No Information Jul-2 6-200 7 Yani Guillaume. [address], [place], [place], [id number], [place]. tel:[phone] Office/outpat ient Visit, [facility], [address], [place], [place], [address], [place] tel:[phone] [facility] No Information Feb-2 6-200 7 Wankum Markell. [address], [place], [place], [address], [place]. tel:[phone] Family History Family Member Type Diagnosis Age At Onset No Information Payers Payer name Insurance type Covered republican ID Authorsamara thakur(s) [facility] CI [id number] Social History Type Description Quantity Date Captured [...]
[2024-11-30 16:38] LABS: Add Urine Microscopic? YES; Appearance Urine Cloudy (Clear); Glucose Urine UA Negative (Negative); Leukocyte Esterase Ur 3+ LEU/UL (Negative); Nitrate Urine Positive (Negative); Non Pathogenic Casts 0-2; Specific Grav Ur 1.020 (1.001-1.035)
[2024-11-30 17:13] LABS: Thyroid Stimulating Hormone 1.150 uIU/mL (0.465-4.680)
== END 2024-11-30 16:06 | disposition home or self-care (01) ==
LOC: ANHLAB 16:06
PROVIDERS: PCP Family Medicine; Visit Provider Family Medicine
DX: R06.00 Dyspnea, unspecified (principal); I10 Essential (primary) hypertension; R53.83 Other fatigue
CPT/HCPCS: 36415; 71046; 81001; 84443